=== PATIENT | female | born 1990 | race Caucasian/White ===

== ENCOUNTER 2016-11-05 16:20 | Emergency (ER) | payer OTHER ==
[2016-11-05] MEDS ORDERED: NS 0.9% 1000 ML* 1,000 ML IV ONE (21:41)
[2016-11-05 22:11] LABS: Hematocrit 37 % (35-47); Hemoglobin 12.1 g/dl (12.0-16.0); Mean Corpuscular HGB Conc 33 g/dl (31-36); Mean Corpuscular Hemoglobin 26 pg (27-31); Mean Corpuscular Volume 80 fL (80-97); Mean Platelet Volume 9 um3 (7.4-10.4); Red Blood Count 4.64 10^6/ul (4.0-5.4); Red Cell Distribution Width 15 % (10.5-15); White Blood Count 7.4 10^3/ul (3.5-10.8)
[2016-11-05 22:24] LABS: Manual Entry Verification CAR0052; UR Preg Internal Control QC Line Present; UR Preg Kit Lot# 6030156
[2016-11-05 22:27] LABS: Albumin 4.1 g/dL (3.2-5.2); BUN/Creatinine Ratio 12.2 (8-20); C Reactive Protein 12.84 mg/L (< 5.00); Calcium 9.1 mg/dL (8.6-10.3); EGFR African American 88.9 (>60); EGFR Non-African American 69.1 (>60); Globulin 3.7 g/dL (2-4); Potassium 3.8 mmol/L (3.5-5.0); Total Bilirubin 0.4 mg/dL (0.2-1.0); Total Protein 7.8 g/dL (6.4-8.9)
[2016-11-05 22:29] LABS: Urine Bacteria 2+ (Absent); Urine Bilirubin Negative (Negative); Urine Glucose Negative (Negative); Urine Nitrite Negative (Negative)
[2016-11-05] MEDS ORDERED: Iohexol 300* (CONTRAST) 10 ML SDV IV ONE (22:32)
--- NOTE | 2016-11-05 22:58 | RAD ---
INDICATION: Right lower quadrant tenderness COMPARISON: None TECHNIQUE: Axial source images were obtained from the hemidiaphragms to the symphysis pubis following administration of oral and intravenous contrast. 145 mL Omnipaque 300 was utilized. Coronal and sagittal reconstructed images were acquired. Lung bases: The lung bases are clear. Liver: The liver is enlarged with findings of hepatic steatosis. There are no masses. There is no ductal dilatation. Gallbladder: There are no calcified gallstones. There is no evidence of wall thickening or pericholecystic fluid. Spleen: The spleen is normal in size. There are no masses. Pancreas: There is no focal pancreatic mass or ductal dilatation. Adrenal glands: There is no evidence of adrenal mass. Kidneys: The kidneys are normal in size and position. There are prompt nephrograms and there is prompt excretion bilaterally. There are no renal parenchymal masses. There is no evidence of nephrolithiasis. Adenopathy: There is no evidence of adenopathy by size criteria. Fluid collections: There are no free or localized fluid collections. Vessels:There are no significant atherosclerotic changes involving the aorta. There is no focal aneurysm. The iliac vessels are normal in caliber. The IVC appears normal. GI tract: Limited evaluation given lack of oral contrast. Fluid-filled large and small bowel. Normal appendix, cecum, and ileocecal valve. No obstruction. Pelvic organs: The uterus and adnexa appear normal Bladder: There are no bladder masses. Abdominal and pelvic soft tissues: The extraperitoneal abdominal and pelvic soft tissues appear normal.. Osseous structures: There are no acute osseous findings. Other: None IMPRESSION: NO ACUTE CT FINDINGS. NO MASS OR INFLAMMATORY CHANGES. NORMAL APPENDIX
[2016-11-06] MEDS ORDERED: Ciprofloxacin TAB* 500 MG PO ONE (00:09)
--- NOTE | 2016-11-06 00:38 | ED ---
Jacques Ku Adam, scribed for Jluis Sparks on 11/05/16 at 2127 . Abdominal Pain/Female - HPI Summary HPI Summary: Pt is a 26 year old female presenting with abdominal pain that set on 5 days ago. The pain has been constant since then but is not as severe now as it was earlier. It is currently a 5/10 in severity. The pain is primarily located in the right half of the pt's abdomen. The pt also c/o consistent diarrhea for the past 5 days and she states that she was vomiting 4 days ago and 5 days ago. She denies any hx of abdominal surgeries and she confirms that she still has her appendix. PMHx of thyroid disease. She denies any tobacco/alcohol hx. Negative FMHx. - History of Current Complaint Chief Complaint: EDNauseaVomitDiarrh Stated Complaint: ABD PAIN Time Seen by Provider: 11/05/16 21:21 Hx Obtained From: Patient Hx Last Menstrual Period: 1 MONTH AGO Onset/Duration: Gradual Onset, Lasting Days, Still Present Timing: Constant Severity Initially: Moderate Severity Currently: Mild Pain Intensity: 5 Pain Scale Used: 0-10 Numeric Location: Diffuse, Discrete At: RUQ, Discrete At: RLQ Radiates: No Aggravating Factor(s): Nothing Alleviating Factor(s): Nothing Associated Signs and Symptoms: Positive: Nausea, Vomiting, Diarrhea Allergies/Adverse Reactions: Allergies Allergy/AdvReac Type Severity Reaction Status Date / Time No Known Allergies Allergy Verified 11/05/16 21:15 PMH/Surg Hx/FS Hx/Imm Hx Endocrine/Hematology History: Reports: Hx Thyroid Disease Infectious Disease History: No Infectious Disease History: Denies: Traveled Outside the [place] in Last 30 Days - Family History Known Family History: Negative: Hypertension, Diabetes - Social History Occupation: Student Lives: Alone Alcohol Use: None Hx Substance Use: No Substance Use Type: Reports: None Hx Tobacco Use: No Smoking Status (MU): Never Smoked Tobacco Review of Systems Negative: Fever Positive: Abdominal Pain, Vomiting, Diarrhea, Nausea All Other Systems Reviewed And Are Negative: Yes Physical Exam Triage Information Reviewed: Yes Vital Signs On Initial Exam: Initial Vitals Temp Pulse Resp BP Pulse Ox 96.8 F 76 18 144/83 100 11/05/16 16:48 11/05/16 16:48 11/05/16 16:48 11/05/16 16:48 11/05/16 16:48 Vital Signs Reviewed: Yes Appearance: Positive: Well-Appearing, No Pain Distress Skin: Positive: Warm, Skin Color Reflects Adequate Perfusion, Dry Head/Face: Positive: Normal Head/Face Inspection Eyes: Positive: EOMI, CÉSAR ENT: Positive: Normal ENT inspection Neck: Positive: Supple, Nontender Respiratory/Lung Sounds: Positive: Clear to Auscultation, Breath Sounds Present Cardiovascular: Positive: RRR, Pulses are Symmetrical in both Upper and Lower Extremities Abdomen Description: Positive: Other: - Tenderness in RLQ and RUQ Bowel Sounds: Positive: Present Musculoskeletal: Positive: Normal, Strength/ROM Intact Diagnostics - Vital Signs Vital Signs Temp Pulse Resp BP Pulse Ox 11/05/16 21:14 97.6 F 76 18 136/80 96 11/05/16 19:20 97.7 F 81 20 153/80 100 11/05/16 18:10 98.5 F 81 16 153/73 100 11/05/16 16:48 96.8 F 76 18 144/83 100 - Laboratory Result Diagrams: 11/05/16 22:01 11/05/16 22:01 Lab Statement: Any lab studies that have been ordered have been reviewed, and results considered in the medical decision making process. - CT ABDOMEN/PELVIS CT Interpretation Completed By: Radiologist - IMPRESSION: NO ACUTE CT FINDINGS. NO MASS OR INFLAMMATORY CHANGES. NORMAL APPENDIX Abdominal Pain Fem Course/Dx - Diagnoses Provider Diagnoses: Nausea, vomiting, and diarrhea, Gastroenteritis, UTI (urinary tract infection) Discharge - Discharge Plan Condition: Stable Disposition: HOME Patient Education Materials: Acute Nausea and Vomiting (ED), Acute Diarrhea (ED ), Gastroenteritis (ED), Urinary Tract Infection in Women (ED) Referrals: Filemon Constantino PA [Primary Care Provider] - Additional Instructions: Follow up with your Primary Care Provider. The documentation as recorded by the Jacques blanco Adam accurately reflects the service I personally performed and the decisions made by , Jluis Sparks.
[2016-11-06 00:45] VITALS: BP 132/66
== END 2016-11-06 00:47 | disposition home or self-care (01) ==
LOC: ED 16:20
DX: K52.9 Noninfective gastroenteritis and colitis, unspecified (principal); N39.0 Urinary tract infection, site not specified; R11.2 Nausea with vomiting, unspecified; R19.7 Diarrhea, unspecified; R10.84 Generalized abdominal pain
CPT/HCPCS: 36415; 74177; 80053; 81003; 81015; 81025; 83605; 83690; 85025; 86140; 87086; 99283; A9270-GY; Q9967

== ENCOUNTER 2017-03-03 07:55 | Emergency (ER) | payer MEDICAID, OTHER ==
[2017-03-03 08:05] VITALS: BP 125/74
--- NOTE | 2017-03-03 10:21 | UC ---
Gera Ku Angela, scribed for Neftali Robledo MD on 03/03/17 at 0824 . Skin Complaint HPI - HPI Summary HPI Summary: This pt is a 26 y/o female presenting to [facility] c/o a pruritic rash on her left buttocks x3 days. Pt reports that she was sitting on a picnic table when she felt a splinter 3 days ago. She went home and that night she noticed a bump and the next day there was a rash, described as "bubbled out dots." She states taking benadryl with no relief. Pt denies rash involving any other body parts, fever, chills, neck swelling. Pt is currently 8 weeks and has had 1 episode of nausea. - History of Current Complaint Chief Complaint: UCSkin Time Seen by Provider: 03/03/17 08:10 Stated Complaint: RASH Hx Obtained From: Patient Hx Last Menstrual Period: 01/02/17 Onset/Duration: Sudden Onset Timing: Constant Pain Intensity: 2 Pain Scale Used: 0-10 Numeric Location: Discrete - left buttock Character: Redness Aggravating: Nothing Alleviating: Nothing Associated Signs & Symptoms: Positive: Nausea - due to , Rash. Negative: Weakness, Fever, Chills, Hoarseness, Abdominal Pain, Tenderness - Allergy/Home Medications Allergies/Adverse Reactions: Allergies Allergy/AdvReac Type Severity Reaction Status Date / Time No Known Allergies Allergy Verified 11/05/16 21:15 Home Medications: Home Medications Vit W/ Ferrous Fumara [ Multivitamin 28-0.8 mg] 1 tab PO DAILY 03/03/17 [History Confirmed 03/03/17] Review of Systems Constitutional: Negative Skin: Rash Eyes: Negative ENT: Negative Respiratory: Negative Cardiovascular: Negative Gastrointestinal: Negative, Nausea - due to . Genitourinary: Negative Motor: Negative Musculoskeletal: Negative Neurological: Negative Psychological: Negative All Other Systems Reviewed And Are Negative: Yes PMH/Surg Hx/FS Hx/Imm Hx - Surgical History Surgical History: None - Family History Known Family History: Negative: Hypertension, Diabetes - Social History Alcohol Use: None Substance Use Type: None Smoking Status (MU): Never Smoked Tobacco Physical Exam Triage Information Reviewed: Yes Vital Signs: Initial Vital Signs Temp 98 F 03/03/17 08:02 Pulse 91 03/03/17 08:02 Resp 18 03/03/17 08:02 BP 125/74 03/03/17 08:02 Pulse Ox 100 03/03/17 08:02 Vital Signs Reviewed: Yes - Additional Comments The patient is well-nourished in no acute distress and in no acute pain. The skin is warm and dry and skin color reflects adequate perfusion. There is an area of erythema on left buttock, with no vesicle, blanching. Distal to this area there are some areas of macular papular rash, not raised and not warm to touch. It does not appear to be abscess or fluid collection. It does not appear to follow erythema migrans or shingles. HEENT: The head is normocephalic and atraumatic. The pupils are equal and reactive. The conjunctivae are clear and without drainage. Nares are patent and without drainage. Mouth reveals moist mucous membranes and the throat is without erythema and exudate. The external ears are intact. The ear canals are patent and without drainage. The tympanic membranes are intact. Neck is supple with full range of motion and non-tender. Respiratory: Chest is non-tender. Lungs are clear to auscultation and breath sounds are symmetrical and equal. Cardiovascular: Hear is regular rate and rhythm. There is no murmur or rub auscultated. Musculoskeletal: There is no back pain noted. Extremities are non-tender with full range of motion. There is good capillary refill. Neurological: Patient is alert and oriented to person, place and time. The patient has symmetrical motor strength in all four extremities. Psychiatric: The patient has an appropriate affect and does not exhibit any anxiety or depression. Course/Dx - Course Course Of Treatment: Due to the pruritic nature of the rash, we recommend the pt continues topical steroids, Benadryl, and ice. - Differential Diagnoses - Skin Complaint Differential Diagnoses: Cellulitis, Contact Dermatitis, Drug Rash, Eczema, Local Allergic Reaction, Poison [place], Tick Born Illness, Varicella Zoster - Diagnoses Provider Diagnoses: Insect bite. Contact Dermatitis. Discharge - Discharge Plan Condition: Stable Disposition: HOME Patient Education Materials: Insect Bite or Sting (ED), Contact Dermatitis (ED) Referrals: Filemon Constantino PA [Primary Care Provider] - Additional Instructions: Please continue topical steroids, Benadryl, and ice the area. Please follow up with your primary care provider to assure symptoms are improving. The documentation as recorded by the Gera blancoKsenia accurately reflects the service I personally performed and the decisions made by me, Neftali Robledo MD.
== END 2017-03-03 08:34 | disposition home or self-care (01) ==
LOC: UCEAST 07:55
DX: S30.860A Insect bite (nonvenomous) of lower back and pelvis, initial encounter (principal); L30.9 Dermatitis, unspecified; O26.899 Other specified pregnancy related conditions, unspecified trimester; Z3A.00 Weeks of gestation of pregnancy not specified; W57.XXXA Bitten or stung by nonvenomous insect and other nonvenomous arthropods, initial encounter; Y93.9 Activity, unspecified; Y99.9 Unspecified external cause status
CPT/HCPCS: 99211; G0463

== ENCOUNTER 2017-03-14 07:25 | Emergency (ER) | payer OTHER, MEDICAID ==
--- NOTE | 2017-03-14 07:29 | UC ---
Complaint Female HPI - History Of Current Complaint Stated Complaint: PERSONAL Time Seen by Provider: 03/14/17 07:28 Hx Obtained From: Patient Hx Last Menstrual Period: 01/02/17 - Allergies/Home Medications Allergies/Adverse Reactions: Allergies Allergy/AdvReac Type Severity Reaction Status Date / Time No Known Allergies Allergy Verified 11/05/16 21:15 PMH/Surg Hx/FS Hx/Imm Hx - Surgical History Surgical History: None - Family History Known Family History: Negative: Hypertension, Diabetes - Social History Alcohol Use: None Substance Use Type: None Smoking Status (MU): Never Smoked Tobacco Review of Systems Constitutional: Negative Skin: Negative Eyes: Negative ENT: Negative Respiratory: Negative Cardiovascular: Negative Gastrointestinal: Negative Genitourinary: Negative Motor: Negative Neurovascular: Negative Musculoskeletal: Negative Neurological: Negative Psychological: Negative All Other Systems Reviewed And Are Negative: Yes Physical Exam Triage Information Reviewed: Yes Vital Signs Reviewed: Yes Eye Exam: Normal ENT Exam: Normal Dental Exam: Normal Neck exam: Normal Neck: Positive: 1 Respiratory Exam: Normal Cardiovascular Exam: Normal Abdominal Exam: Normal Musculoskeletal Exam: Normal Neurological Exam: Normal Psychological Exam: Normal Skin Exam: Normal Discharge - Discharge Plan Condition: Stable Disposition: HOME Referrals: Filemon Constantino PA [Primary Care Provider] -
--- NOTE | 2017-03-14 09:17 | RAD ---
INDICATION: 9.5 week increased vaginal bleeding. COMPARISON: There are no prior studies available for comparison. TECHNIQUE: Multiple real-time transvaginal images of the pelvis were obtained. FINDINGS: This exam demonstrates an early intrauterine . A pole and yolk sac are visualized. No heartbeat was visualized. The crown-rump length measured 0.6 cm corresponding to an estimated gestational age of 6 weeks 3 days. The mean sac diameter measured 1.64 cm corresponding to an estimate gestational age of 6 weeks 4 days. The right ovary measured 4.9 x 2.3 x 1.7 cm. The left ovary measured 3.4 x 1.5 x 2.1 cm. There is vascular flow within both ovaries. There is a slightly complex 2.5 x 2.3 x 2.5 cm right ovarian cyst most consistent with a corpus luteum cyst. No free intraperitoneal fluid is seen. IMPRESSION: 1. EARLY INTRAUTERINE WITH AN ESTIMATED GESTATIONAL AGE OF 6 WEEKS 3 DAYS BY CROWN-RUMP LENGTH. NO HEARTBEAT IS VISUALIZED. THIS IS SUSPICIOUS FOR ALTHOUGH NON-DIAGNOSTIC FOR DEMISE. RECOMMEND A FOLLOW-UP TRANSVAGINAL PELVIC ULTRASOUND IN 1 WEEKS TIME FOR FURTHER EVALUATION. 2. 2.5 CM RIGHT OVARIAN CYST MOST CONSISTENT WITH A PHYSIOLOGIC CYST.
--- NOTE | 2017-03-14 09:39 | UC ---
Carmen Ku Alfonso, scribed for Neftali Robledo MD on 03/14/17 at 0810 . Complaint Female HPI - HPI Summary HPI Summary: This patient is a 26 year old female presenting to [facility] with a chief complaint of vaginal bleeding since a few days ago. She reports it is like a period blood and then it becomes a brown. These symptoms began after intercourse a few days ago. She states the bleeding is noticed twice a day when she wipes the vaginal area. The patient rates the pain 1/10 in severity. Symptoms alleviated by nothing. Patient reports vaginal discharge (white), abdominal cramping, vomiting, breast enlargement, urinary frequency, and urinary urgency. Patient denies dysuria, back pain, and morning sickness. She denies her partner has penile discharge. She reports an OBGYN appointment scheduled for 03/31/17. She is approximately 9.5 weeks with a due date. Patients medications reviewed this visit. - History Of Current Complaint Chief Complaint: UCGeneralIllness Stated Complaint: PERSONAL Time Seen by Provider: 03/14/17 07:28 Hx Obtained From: Patient Hx Last Menstrual Period: December 2016 ?: Yes Onset/Duration: Sudden Onset, Lasting Days, Still Present Timing: Intermittent - noticed twice a day Severity Initially: Mild Severity Currently: Mild Pain Intensity: 1 Pain Scale Used: 0-10 Numeric Alleviating Factor(s): Nothing Associated Signs And Symptoms: Positive: Vaginal Bleeding/Discharge Related Hx: - Allergies/Home Medications Allergies/Adverse Reactions: Allergies Allergy/AdvReac Type Severity Reaction Status Date / Time No Known Allergies Allergy Verified 03/14/17 07:37 PMH/Surg Hx/FS Hx/Imm Hx Other GI/ History: Currently . - Surgical History Surgical History: None - Family History Known Family History: Negative: Hypertension, Diabetes - Social History Alcohol Use: None Substance Use Type: None Smoking Status (MU): Never Smoked Tobacco Review of Systems Gastrointestinal: Vomiting Genitourinary: Other - Vaginal bleeding, vaginal discharge (white), urinary frequency, and urinary urgency; negative dysuria, and morning sickness. Musculoskeletal: Other: - breast enlargement; negative back pain. All Other Systems Reviewed And Are Negative: Yes Physical Exam Triage Information Reviewed: Yes Vital Signs: Initial Vital Signs Temp 98 F 03/14/17 07:38 Pulse 73 03/14/17 07:38 Resp 18 08/28/17 07:38 BP 137/69 03/14/17 07:38 Pulse Ox 100 03/14/17 07:38 Vital Signs Reviewed: Yes - Additional Comments The patient is well-nourished in no acute distress and in no acute pain. The skin is warm and dry and skin color reflects adequate perfusion. HEENT: The head is normocephalic and atraumatic. The pupils are equal and reactive. The conjunctivae are clear and without drainage. Nares are patent and without drainage. Mouth reveals moist mucous membranes and the throat is without erythema and exudate. The external ears are intact. The ear canals are patent and without drainage. The tympanic membranes are intact. Neck is supple with full range of motion and non-tender. There are no carotid bruits. There is no neck vein distension. Respiratory: Chest is non-tender. Lungs are clear to auscultation and breath sounds are symmetrical and equal. Cardiovascular: Heart is regular rate and rhythm. There is no murmur or rub auscultated. Pulses are symmetrical and equal. Abdomen: The abdomen is obese, soft, and non-tender. Musculoskeletal: There is no back pain noted. Extremities are non-tender with full range of motion. There is good capillary refill. There is no peripheral edema or calf tenderness elicited. Neurological: Patient is alert and oriented to person, place and time. The patient has symmetrical motor strength in all four extremities. Cranial nerves are grossly intact. Psychiatric: The patient has an appropriate affect. Diagnostics - Laboratory Diagnostic Studies Completed/Ordered: An US reveals, per radiologist, 1. EARLY INTRAUTERINE WITH AN ESTIMATED GESTATIONAL AGE OF 6 WEEKS 3 DAYS BY CROWN-RUMP LENGTH. NO HEARTBEAT IS VISUALIZED. THIS IS SUSPICIOUS FOR ALTHOUGH NON-DIAGNOSTIC FOR DEMISE. RECOMMEND A FOLLOW-UP TRANSVAGINAL PELVIC ULTRASOUND IN 1 WEEKS TIME FOR FURTHER EVALUATION. 2. 2.5 CM RIGHT OVARIAN CYST MOST CONSISTENT WITH A PHYSIOLOGIC CYST. [facility] physician has reviewed this radiology report and agrees. Complaint Female Dx - Course Course Of Treatment: This patient is a 26 year old female presenting to [facility] with a chief complaint of vaginal bleeding since a few days ago. She reports it is like a period blood and then it becomes a brown. These symptoms began after intercourse a few days ago. She states the bleeding is noticed twice a day when she wipes the vaginal area. The patient rates the pain 1/10 in severity. Symptoms alleviated by nothing. Patient reports vaginal discharge ( white), abdominal cramping, vomiting, breast enlargement, urinary frequency, and urinary urgency. Patient denies dysuria, back pain, and morning sickness. She denies her partner has penile discharge. She reports an OBGYN appointment scheduled for 03/31/17. She is approximately 9.5 weeks with a due date. Patients medications reviewed this visit. An US reveals, per radiologist, 1. EARLY INTRAUTERINE WITH AN ESTIMATED GESTATIONAL AGE OF 6 WEEKS 3 DAYS BY CROWN-RUMP LENGTH. NO HEARTBEAT IS VISUALIZED. THIS IS SUSPICIOUS FOR ALTHOUGH NON-DIAGNOSTIC FOR DEMISE. RECOMMEND A FOLLOW- UP TRANSVAGINAL PELVIC ULTRASOUND IN 1 WEEKS TIME FOR FURTHER EVALUATION. 2. 2.5 CM RIGHT OVARIAN CYST MOST CONSISTENT WITH A PHYSIOLOGIC CYST. [facility] physician has reviewed this radiology report and agrees. Pt instructed to FOLLOW UP WITH PRIMARY CARE PROVIDER IN THE NEXT 4 WEEKS FOR HIGH BLOOD PRESSURE NOTED TODAY AT 137/69 AND HAVE A REPEAT TEST DONE IN 48 HOURS. Patient will be discharged with prescription and follow up from PCP in two days. The patient is agreeable with this plan. - Differential Dx/Diagnosis Differential Diagnosis/HQI/PQRI: Ectopic, Ovarian Cyst, , Urinary Tract Infection, Other - early , threatened miscarriage, Provider Diagnoses: Threatened miscarriage, early , and UTI. Discharge - Discharge Plan Condition: Stable Disposition: HOME Prescriptions: Nitrofurantoin Macrocrystals* [Macrodantin*] 100 mg PO BID #14 cap Patient Education Materials: Urinary Tract Infection in Women (ED), Threatened Miscarriage (ED), First Trimester (ED) Referrals: Filemon Constantino PA [Primary Care Provider] - 2 Days Additional Instructions: FOLLOW UP WITH YOUR PRIMARY CARE PROVIDER IN THE NEXT 4 WEEKS FOR HIGH BLOOD PRESSURE NOTED TODAY AT 137/69. THIS DOES NOT MEAN YOU HAVE HYPERTENSION. HAVE A REPEAT TEST DONE IN 48 HOURS. The documentation as recorded by the Carmen blanco Alfonso accurately reflects the service I personally performed and the decisions made by me, Neftali Robledo MD.
[2017-03-14 09:49] VITALS: BP 138/74
[2017-03-14 12:22] LABS: Hematocrit 38 % (35-47); Hemoglobin 12.3 g/dl (12.0-16.0); Mean Corpuscular HGB Conc 33 g/dl (31-36); Mean Corpuscular Hemoglobin 26 pg (27-31); Mean Corpuscular Volume 80 fL (80-97); Mean Platelet Volume 9 um3 (7.4-10.4); Red Blood Count 4.68 10^6/ul (4.0-5.4); Red Cell Distribution Width 15 % (10.5-15); White Blood Count 8.8 10^3/ul (3.5-10.8)
[2017-03-14 12:42] LABS: Albumin 4.5 g/dL (3.2-5.2); BUN/Creatinine Ratio 11.2 (8-20); Calcium 9.9 mg/dL (8.6-10.3); EGFR African American 99.4 (>60); EGFR Non-African American 77.3 (>60); Potassium 4.3 mmol/L (3.5-5.0); Total Bilirubin 0.4 mg/dL (0.2-1.0); Total Protein 7.5 g/dL (6.4-8.9)
--- NOTE | 2017-03-15 07:17 | UC ---
Progress - Progress Note Progress Note: [id number] NEEDS REPEAT HCG IN 24 HOURS TO CHECK ON STATUS OF FETUS. GO TO PMD OR ED OR PREVIOUSLY INSTRUCTED TO REPEAT B HCG. CALL PATIENT TO REVIEW PREVIOUS DISCHARGE INSTRUCTIONS. SINDY CAMPOS MD
== END 2017-03-14 09:40 | disposition home or self-care (01) ==
LOC: UCEAST 07:25
DX: O20.0 Threatened abortion (principal); O23.41 Unspecified infection of urinary tract in pregnancy, first trimester; B96.20 Unspecified Escherichia coli [E. coli] as the cause of diseases classified elsewhere; Z3A.01 Less than 8 weeks gestation of pregnancy
CPT/HCPCS: 36415; 76817; 80053; 81003; 84702; 85025; 85610; 86900; 86901; 87077; 87086; 87186; 99212; G0463